=== PATIENT | male | born 1995 | race Caucasian/White ===

== ENCOUNTER 2022-01-05 12:20 | Emergency (ER) | payer OTHER ==
[~2022-01-05] VITALS: Ht 182.9 cm; Wt 65.8 kg
[2022-01-05] MEDS ORDERED: CLON2TAB11 PO ×2 (12:53→14:00)
[2022-01-05] MEDS ORDERED: clonazePAM 1 MG TABLET PO ONE (13:30)
[2022-01-05] MEDS ORDERED: clonazePAM 1 MG TABLET ONE (13:30)
[2022-01-05 13:45] VITALS: BP 126/88
== END 2022-01-05 14:09 | disposition home or self-care (01) ==
LOC: ER 12:50
DX: F13.20 Sedative, hypnotic or anxiolytic dependence, uncomplicated (principal); F41.9 Anxiety disorder, unspecified; Z60.2 Problems related to living alone; Z79.899 Other long term (current) drug therapy
CPT/HCPCS: 99283; A6403

== ENCOUNTER 2022-01-10 17:53 | Emergency (ER) | payer OTHER ==
[~2022-01-10] VITALS: Ht 182.9 cm; Wt 65.8 kg
[~2022-01-10 17:53] MED LIST: CLON2TAB11 PO
--- NOTE | 2022-01-10 17:54 | NUR ---
TO ER BED 11, [facility]IB[facility] 89 [facility] C/O "IM HAVING BENZO WITHDRAWLS.", BUE AND BLE SHAKING, AAOX3, BREATHING EVEN AND NON LABORED, CONNECTED TO MONITOR
[2022-01-10] MEDS ORDERED: LORAZEPAM INJ 2 MG/ML VIAL IM ONE (18:00)
[2022-01-10] MEDS ORDERED: LORA-259 PO (18:07)
[2022-01-10] MEDS ORDERED: LORAZEPAM INJ 2 MG/ML VIAL ONE (18:16)
[2022-01-10] MEDS ORDERED: LORAZEPAM 1 MG TABLET ONE (18:36)
--- NOTE | 2022-01-10 18:45 | NUR ---
Patient discharged to home in stable condition. Written and verbal after care instructions given. Patient verbalizes understanding of instruction.
[2022-01-10 18:49] VITALS: BP 122/80
[2022-01-10] MEDS ORDERED: LORAZEPAM 1 MG TABLET PO ONE (19:00)
== END 2022-01-10 18:49 | disposition home or self-care (01) ==
LOC: ER 17:54
DX: F13.239 Sedative, hypnotic or anxiolytic dependence with withdrawal, unspecified (principal); F41.9 Anxiety disorder, unspecified; F32.A Depression, unspecified; Z60.2 Problems related to living alone; Z79.899 Other long term (current) drug therapy
CPT/HCPCS: 96372; 99283; J2060